=== PATIENT | female | born 1995 | race Caucasian/White ===

== ENCOUNTER → 2018-01-22 | Outpatient (CLI) | payer SELFPAY ==
[~2018-01-22] MED LIST: BIRTH CONTROL; BIRTH CONTROL PILLS; MIDOL; MONONESSA 35 MC1 TA1 PO; NORCO 325 MG-51 TAB PO; ZOLOFT 50MG50 MG; [UNRECOGNIZED DRUG - OTHER]
== END ==
LOC: COL.RAD 12:45
DX: N94.6 Dysmenorrhea, unspecified (principal)